=== PATIENT | male | born 1970 | race African-American/Black ===

== ENCOUNTER 2017-09-11 01:21 | Emergency (ER) | payer MEDICAID ==
[~2017-09-11] VITALS: Ht 172.7 cm; Wt 87.2 kg
[~2017-09-11 01:21] MED LIST: ALBU8.5H8 IH; AMOX-580 PO; AZIT250T PO; CLIN-26 PO; CYCL-1 PO; HYDR-3965 PO; METH-360 PO; NAPR-1154 PO; PHEN-715 PO
[2017-09-11 01:48] VITALS: BP 120/84
== END 2017-09-11 01:49 | disposition home or self-care (01) ==
LOC: ER 01:23
DX: H92.02 Otalgia, left ear (principal); M25.511 Pain in right shoulder; G89.29 Other chronic pain; K21.9 Gastro-esophageal reflux disease without esophagitis; F12.10 Cannabis abuse, uncomplicated; Z79.2 Long term (current) use of antibiotics; Z79.899 Other long term (current) drug therapy; Z56.0 Unemployment, unspecified; Z60.2 Problems related to living alone
CPT/HCPCS: 99281

== ENCOUNTER 2018-03-05 12:46 | Emergency (ER) | payer MEDICAID ==
[~2018-03-05] VITALS: Ht 180.3 cm; Wt 80.6 kg
[2018-03-05 13:03] VITALS: BP 121/67
[2018-03-05] MEDS ORDERED: METH4TAB81 PO (14:27)
[2018-03-05] MEDS ORDERED: CEPH500C5 PO (14:27)
== END 2018-03-05 14:42 | disposition home or self-care (01) ==
LOC: ER 12:46
DX: T63.441A Toxic effect of venom of bees, accidental (unintentional), initial encounter (principal); M25.432 Effusion, left wrist; K21.9 Gastro-esophageal reflux disease without esophagitis; G89.29 Other chronic pain; M54.9 Dorsalgia, unspecified; F12.90 Cannabis use, unspecified, uncomplicated; Z56.0 Unemployment, unspecified; Z79.899 Other long term (current) drug therapy; Y92.9 Unspecified place or not applicable
CPT/HCPCS: 99283

== ENCOUNTER 2018-05-14 05:06 | Emergency (ER) | payer MEDICAID ==
[~2018-05-14] VITALS: Ht 172.7 cm; Wt 65.0 kg
[~2018-05-14 05:06] MED LIST changes: +CEPH500C5 PO; +METH4TAB81 PO
[2018-05-14 06:00] VITALS: BP 147/89
[2018-05-14] MEDS ORDERED: AMOX500C2 PO (06:32)
[2018-05-14] MEDS ORDERED: amoxicillin 250mg capsule PO ONE (06:35)
== END 2018-05-14 06:42 | disposition home or self-care (01) ==
LOC: ER 05:06
DX: J02.9 Acute pharyngitis, unspecified (principal); G89.29 Other chronic pain; I25.10 Atherosclerotic heart disease of native coronary artery without angina pectoris; I25.2 Old myocardial infarction; K21.9 Gastro-esophageal reflux disease without esophagitis; F12.90 Cannabis use, unspecified, uncomplicated; Z79.2 Long term (current) use of antibiotics; Z79.899 Other long term (current) drug therapy; Z56.0 Unemployment, unspecified; Z60.2 Problems related to living alone
CPT/HCPCS: 99283

== ENCOUNTER 2019-09-30 03:39 | Emergency (ER) | payer MEDICAID ==
[~2019-09-30] VITALS: Ht 172.7 cm; Wt 68.2 kg
[~2019-09-30 03:39] MED LIST changes: -CEPH500C5 PO
[2019-09-30 03:42] VITALS: BP 143/102
[2019-09-30] MEDS ORDERED: CefTRIAXone 250MG IM Kit w/LIDOcaine IM ONE (04:00)
[2019-09-30] MEDS ORDERED: azithromycin 250mg tablet PO ONE (04:00)
== END 2019-09-30 05:46 | disposition home or self-care (01) ==
LOC: ER 03:39
DX: R30.0 Dysuria (principal); I25.10 Atherosclerotic heart disease of native coronary artery without angina pectoris; I25.2 Old myocardial infarction; K21.9 Gastro-esophageal reflux disease without esophagitis; G89.29 Other chronic pain; F32.9 Major depressive disorder, single episode, unspecified; F12.90 Cannabis use, unspecified, uncomplicated; Z60.2 Problems related to living alone; Z56.0 Unemployment, unspecified; Z79.2 Long term (current) use of antibiotics; Z79.899 Other long term (current) drug therapy
CPT/HCPCS: 99281

== ENCOUNTER 2021-06-19 00:23 | Emergency (ER) | payer MEDICAID ==
[~2021-06-19] VITALS: Ht 172.7 cm; Wt 77.3 kg
[~2021-06-19 00:23] MED LIST changes: +ALBU8.5H17 IH; -ALBU8.5H8 IH
[2021-06-19 00:52] VITALS: BP 135/95
[2021-06-19] MEDS ORDERED: AMOX-422 PO (06:03)
[2021-06-19] MEDS ORDERED: amox tr/potassium clavulanate 875/125mg TAB PO ONE (06:15)
== END 2021-06-19 06:32 | disposition home or self-care (01) ==
LOC: ER 00:24
DX: J03.90 Acute tonsillitis, unspecified (principal); R13.10 Dysphagia, unspecified; I25.10 Atherosclerotic heart disease of native coronary artery without angina pectoris; K21.9 Gastro-esophageal reflux disease without esophagitis; G89.29 Other chronic pain; F32.9 Major depressive disorder, single episode, unspecified; F12.90 Cannabis use, unspecified, uncomplicated; Z86.69 Personal history of other diseases of the nervous system and sense organs; Z72.89 Other problems related to lifestyle; Z56.0 Unemployment, unspecified; Z79.2 Long term (current) use of antibiotics; Z79.899 Other long term (current) drug therapy
CPT/HCPCS: 99283

== ENCOUNTER 2022-06-21 05:54 | Emergency (ER) | payer MEDICAID ==
[~2022-06-21] VITALS: Ht 172.7 cm; Wt 79.5 kg
[2022-06-21 06:29] VITALS: BP 142/92
[2022-06-21] MEDS ORDERED: CEPH250T PO (09:19)
[2022-06-21] MEDS ORDERED: NAPR-56 PO (09:19)
[2022-06-21] MEDS ORDERED: cephalexin 250mg capsule PO ONE (09:20)
== END 2022-06-21 10:27 | disposition home or self-care (01) ==
LOC: ER 05:54
DX: S90.922A Unspecified superficial injury of left foot, initial encounter (principal); L03.116 Cellulitis of left lower limb; K21.9 Gastro-esophageal reflux disease without esophagitis; G89.29 Other chronic pain; M54.50 Low back pain, unspecified; F12.90 Cannabis use, unspecified, uncomplicated; Z56.0 Unemployment, unspecified; X58.XXXA Exposure to other specified factors, initial encounter; Y93.89 Activity, other specified; Y92.89 Other specified places as the place of occurrence of the external cause; Y99.8 Other external cause status
CPT/HCPCS: 73620; 99283

== ENCOUNTER 2022-06-25 00:18 | Emergency (ER) | payer MEDICAID ==
[~2022-06-25] VITALS: Ht 172.7 cm; Wt 75.0 kg
[~2022-06-25 00:18] MED LIST changes: +CEPH250T PO; +NAPR-56 PO; -PHEN-715 PO
[2022-06-25 00:22] VITALS: BP 106/81
[2022-06-25] MEDS ORDERED: LIDOcaine 1% w/EPI 1:100,000 30ml vial (MDV) IJ STA (04:43)
== END 2022-06-25 05:54 | disposition home or self-care (01) ==
LOC: ER 00:19
DX: S01.81XA Laceration without foreign body of other part of head, initial encounter (principal); K21.9 Gastro-esophageal reflux disease without esophagitis; G89.29 Other chronic pain; M54.50 Low back pain, unspecified; F12.90 Cannabis use, unspecified, uncomplicated; Z56.0 Unemployment, unspecified; X58.XXXA Exposure to other specified factors, initial encounter; Y93.89 Activity, other specified; Y92.89 Other specified places as the place of occurrence of the external cause; Y99.8 Other external cause status
CPT/HCPCS: 12011; 70450; 99284

== ENCOUNTER 2022-06-28 07:29 | Emergency (ER) | payer MEDICAID ==
[~2022-06-28] VITALS: Ht 172.7 cm; Wt 73.0 kg
[2022-06-28 07:35] VITALS: BP 134/91
[2022-06-28] MEDS ORDERED: LIDOcaine 1% w/EPI 1:100,000 30ml vial (MDV) IJ ONE (09:55)
--- NOTE | 2022-06-28 10:02 | NUR ---
Pt set up for I&D of L heel.
[2022-06-28] MEDS ORDERED: HYDROcodone/acetaminophen 10/325mg tab PO ONE (10:10)
[2022-06-28] MEDS ORDERED: SULF1TAB45 PO (10:11)
--- NOTE | 2022-06-28 10:19 | NUR ---
Post I&D wound cleaned with surcleanse. Dressed with 4x4s and kerlex.
--- NOTE | 2022-06-28 10:20 | NUR ---
Pt given and understands d/c instructions. Given crutches for ambulation.
== END 2022-06-28 10:20 | disposition home or self-care (01) ==
LOC: ER 07:30
DX: L02.612 Cutaneous abscess of left foot (principal); K21.9 Gastro-esophageal reflux disease without esophagitis; G89.29 Other chronic pain; M54.50 Low back pain, unspecified; F12.90 Cannabis use, unspecified, uncomplicated; Z56.0 Unemployment, unspecified
CPT/HCPCS: 10060; 73630; 99283; J3490; A6449

== ENCOUNTER 2022-11-16 16:05 | Emergency (ER) | payer MEDICAID ==
[~2022-11-16] VITALS: Ht 172.7 cm; Wt 83.4 kg
[~2022-11-16 16:05] MED LIST changes: -CEPH250T PO; -NAPR-56 PO
[2022-11-16 16:09] VITALS: BP 153/96
[2022-11-16] MEDS ORDERED: proparacaine 0.5% ophthalmic drops 15ml EACHEYE ONE (18:25)
[2022-11-16] MEDS ORDERED: polymyxin B sulf/tmp ophth drops 10ml EACHEYE STA (18:57)
== END 2022-11-16 19:30 | disposition home or self-care (01) ==
LOC: ER 16:07
DX: H10.33 Unspecified acute conjunctivitis, bilateral (principal); I25.10 Atherosclerotic heart disease of native coronary artery without angina pectoris; I25.2 Old myocardial infarction; K21.9 Gastro-esophageal reflux disease without esophagitis; G89.29 Other chronic pain; F32.9 Major depressive disorder, single episode, unspecified; F12.90 Cannabis use, unspecified, uncomplicated; Z56.0 Unemployment, unspecified; Z60.2 Problems related to living alone; Z79.82 Long term (current) use of aspirin; Z98.890 Other specified postprocedural states; Z79.899 Other long term (current) drug therapy
CPT/HCPCS: 99283

== ENCOUNTER 2022-12-03 06:55 | Emergency (ER) | payer MEDICAID ==
[~2022-12-03] VITALS: Ht 172.7 cm; Wt 76.0 kg
[2022-12-03 07:05] VITALS: BP 123/82
[2022-12-03] MEDS ORDERED: DOXYCYCLINE 100MG CAPSULE PO STA (07:43)
[2022-12-03] MEDS ORDERED: acetaminophen w/codeine (30MG) #3 tablet PO ONE (07:45)
[2022-12-03] MEDS ORDERED: DEXT15LI3 PO (07:47)
[2022-12-03] MEDS ORDERED: ALBU18HF2 INH (07:47)
[2022-12-03] MEDS ORDERED: DOXY-411 PO (07:47)
== END 2022-12-03 08:34 | disposition home or self-care (01) ==
LOC: ER 06:55
DX: J20.9 Acute bronchitis, unspecified (principal); K21.9 Gastro-esophageal reflux disease without esophagitis; F12.90 Cannabis use, unspecified, uncomplicated; Z56.0 Unemployment, unspecified
CPT/HCPCS: 99283

== ENCOUNTER 2023-04-28 04:37 | Emergency (ER) | payer MEDICAID ==
[~2023-04-28] VITALS: Ht 172.7 cm; Wt 75.0 kg
[~2023-04-28 04:37] MED LIST changes: +ALBU18HF2 INH; +DEXT15LI3 PO
[2023-04-28 04:44] VITALS: BP 149/99; PULSE 81; RESP 18; TEMP 98; O2SAT 99
[2023-04-28] MEDS ORDERED: NAPR-56 PO (09:30)
[2023-04-28] MEDS ORDERED: naproxen 500mg tablet PO ONE (09:30)
[2023-04-28] MEDS ORDERED: cyclobenzaprine 10mg tablet PO ONE (09:30)
--- NOTE | 2023-04-28 09:38 | NUR ---
PT SEEN AND DC IN RAP/TRIAGE
== END 2023-04-28 10:05 | disposition home or self-care (01) ==
LOC: ER 04:38
DX: M54.2 Cervicalgia (principal); R51.9 Headache, unspecified; I25.10 Atherosclerotic heart disease of native coronary artery without angina pectoris; I25.2 Old myocardial infarction; G89.29 Other chronic pain; F17.200 Nicotine dependence, unspecified, uncomplicated; F12.90 Cannabis use, unspecified, uncomplicated; Z59.00 Homelessness unspecified; Z79.2 Long term (current) use of antibiotics; Z79.899 Other long term (current) drug therapy
CPT/HCPCS: 99283

== ENCOUNTER 2024-07-25 23:03 | Emergency (ER) | payer MEDICAID ==
[~2024-07-25] VITALS: Ht 172.7 cm; Wt 75.0 kg
[~2024-07-25 23:03] MED LIST changes: -DEXT15LI3 PO; +DEXT15LI31 PO
[2024-07-25 23:10] VITALS: TEMP 98
[2024-07-26] MEDS: ketorolac trometh 30MG/ML vial 30 MG/ML VIAL IM ONE (01:23)
[2024-07-26] MEDS ORDERED: TRAM50TA2 PO (03:21)
[2024-07-26 03:36] VITALS: BP 140/80; PULSE 90; RESP 16; O2SAT 98
== END 2024-07-26 03:38 | disposition home or self-care (01) ==
LOC: ER 23:03
DX: M79.661 Pain in right lower leg (principal); F17.200 Nicotine dependence, unspecified, uncomplicated; F12.90 Cannabis use, unspecified, uncomplicated; G89.29 Other chronic pain; I25.10 Atherosclerotic heart disease of native coronary artery without angina pectoris; I25.2 Old myocardial infarction; K21.9 Gastro-esophageal reflux disease without esophagitis; Z79.2 Long term (current) use of antibiotics; Z79.899 Other long term (current) drug therapy; X58.XXXA Exposure to other specified factors, initial encounter; Y93.51 Activity, roller skating (inline) and skateboarding; Y92.89 Other specified places as the place of occurrence of the external cause; Y99.8 Other external cause status
CPT/HCPCS: 73560; 96372; 99283; J1885